=== PATIENT | female | born 1965 | race Two or more races ===

== ENCOUNTER 2023-01-29 23:55 | Emergency (ER) | payer MEDICAID ==
[~2023-01-29] VITALS: Ht 170.2 cm; Wt 72.0 kg
[2023-01-29 23:55] VITALS: BP 142/61
== END 2023-01-30 03:28 | disposition left against medical advice (07) ==
LOC: ER 23:55
DX: R06.02 Shortness of breath (principal); R51.9 Headache, unspecified; R42 Dizziness and giddiness; Z53.21 Procedure and treatment not carried out due to patient leaving prior to being seen by health care provider
CPT/HCPCS: 93005